=== PATIENT | female | born 1960 ===

== ENCOUNTER 2018-04-22 06:53 | Outpatient (CLI) | payer OTHER | END 2018-04-22 06:59 | disposition home or self-care (01) | LOC: SONOGRAMA 06:53 | DX: E04.2 Nontoxic multinodular goiter (principal) ==

== ENCOUNTER 2020-05-14 09:55 | Outpatient (CLI) | payer OTHER | END 2020-05-14 11:05 | disposition home or self-care (01) | LOC: SONOGRAMA 09:55 | PROVIDERS: ATTEND Pathology Anatomic Pathology & Clinical Pathology | DX: E04.2 Nontoxic multinodular goiter (principal) ==

== ENCOUNTER 2024-03-17 09:09 | Outpatient (CLI) | payer OTHER | END 2024-03-17 09:14 | disposition home or self-care (01) | LOC: SONOGRAMA 09:09 | PROVIDERS: ATTEND Pathology Anatomic Pathology & Clinical Pathology | DX: D34 Benign neoplasm of thyroid gland (principal); E07.89 Other specified disorders of thyroid; E06.3 Autoimmune thyroiditis; E04.8 Other specified nontoxic goiter ==